=== PATIENT | female | born 1965 | race Two or more races ===

== ENCOUNTER → 2018-04-23 | Outpatient (CLI) | payer OTHER | END | disposition home or self-care (01) | LOC: CVU 15:43 | PROVIDERS: ATTEND Internal Medicine Cardiovascular Disease | DX: M32.9 Systemic lupus erythematosus, unspecified (principal); M35.9 Systemic involvement of connective tissue, unspecified; E11.9 Type 2 diabetes mellitus without complications | CPT/HCPCS: 93306 ==